=== PATIENT | female | born 1980 | race Two or more races ===

== ENCOUNTER 2018-09-08 20:30 | Emergency (ER) | payer BC ==
[~2018-09-08] VITALS: Ht 160 cm; Wt 52.0 kg
[2018-09-08 23:38] VITALS: BP 111/67
== END 2018-09-08 23:38 | disposition home or self-care (01) ==
LOC: ER 20:30
DX: F41.9 Anxiety disorder, unspecified (principal); I45.10 Unspecified right bundle-branch block; R94.31 Abnormal electrocardiogram [ECG] [EKG]; R06.4 Hyperventilation; Z88.6 Allergy status to analgesic agent
CPT/HCPCS: 93005; 99283